=== PATIENT | male | born 1940 | race Caucasian/White ===

== ENCOUNTER → 2016-07-08 08:41 | Outpatient (CLI) | payer MEDICARE, OTHER | END | disposition home or self-care (01) | LOC: D.US 08:41 | DX: R10.11 Right upper quadrant pain (principal) ==

== ENCOUNTER → 2016-07-22 08:53 | Outpatient (CLI) | payer MEDICARE, OTHER | END | disposition home or self-care (01) | LOC: D.CT 08:53 | DX: R10.11 Right upper quadrant pain (principal) ==

== ENCOUNTER → 2018-06-10 14:55 | Outpatient (CLI) | payer MEDICARE, OTHER | END | disposition home or self-care (01) | LOC: D.MRI 14:55 | PROVIDERS: ATTEND Family Medicine | DX: M54.16 Radiculopathy, lumbar region (principal) ==